=== PATIENT | female | born 1960 | race Two or more races ===

== ENCOUNTER → 2017-12-28 | Emergency (ER) | payer MEDICAID ==
[~2017-12-28] MED LIST: ATEN-60 OR; ENAL20TA93 OR; FURO40TA OR; IBU800T PO; LEVO25TA9 OR; POTASSIUM OR
== END | disposition left against medical advice (07) ==
LOC: ER 21:49
DX: R10.9 Unspecified abdominal pain (principal); Z53.21 Procedure and treatment not carried out due to patient leaving prior to being seen by health care provider

== ENCOUNTER 2018-05-14 00:21 | Inpatient (IN) | payer MEDICAID ==
[~2018-05-14] VITALS: Ht 153.7 cm; Wt 72.6 kg
[~2018-05-14 00:21] MED LIST changes: +HYDR-4683 PO; +ONDA-101 PO; -POTASSIUM OR
[2018-05-14 01:29] LABS: Eosinophils # (auto) 0 uL; Hemoglobin 8.4 g/dL (12.2-16.2); Monocytes # (auto) 0.6 uL; Monocytes % (auto) 3.9 % (0.0-12.0)
[2018-05-14 01:31] LABS: Basophils # (auto) 0 uL; Basophils % (auto) 0.3 % (0.0-2.0); Hematocrit 26.4 % (36.0-46.0); Lymphocytes # (auto) 1.1 uL; Lymphocytes % (auto) 6.8 % (10.0-50.0); Mean Corpuscular Hemoglobin 26.9 pg (28.0-32.0); Mean Corpuscular Hgb Conc. 31.7 g/dL (32.0-36.0); Neutrophils # (auto) 13.9 uL; Platelet Count (auto) 363 10^3/uL (140-450); Red Blood Cells 3.11 10^6/uL (4.0-5.20); White Blood Cell 15.6 10^3/uL (4.4-10.8)
[2018-05-14 01:33] LABS: Red Cell Distribution Width 20.8 % (11.8-14.3)
[2018-05-14 01:42] LABS: Alanine Aminotransferase 26 U/L (13-56); Albumin 1.6 g/dL (3.4-5.0); Anion Gap 10 (5-15); Aspartate Aminotransferase 16 U/L (15-37); BUN/Creatinine Ratio 29.9; Calcium 8.2 mg/dL (8.5-10.1); Carbon Dioxide 23 mmol/L (21-32); Chloride 98 mmol/L (98-107); GFR African American 19 mL/min; GFR Non-African American 16 mL/min; Glucose 200 mg/dL (74-106); Magnesium 1.8 mg/dL (1.6-2.6); Sodium 131 mmol/L (136-145)
[2018-05-14 01:45] LABS: Blood Urea Nitrogen 98 mg/dL (7-18); Potassium 5.9 mmol/L (3.5-5.1)
[2018-05-14 01:47] LABS: Alkaline Phosphatase 247 U/L (45-117); Bilirubin, Total 0.6 mg/dL (0.2-1.0); Total Protein 6.7 g/dL (6.4-8.2)
[2018-05-14] MEDS ORDERED: CALCIUM GLUC 4.65meq/50ml D5AE 50 ML IV ONE (02:00)
[2018-05-14] MEDS ORDERED: InsuLIN REG 1unit/0.01ml Soln (100units/ml) IV ONE (02:00)
[2018-05-14] MEDS ORDERED: SODIUM BICARBONATE 8.4% INJ 50ML SYRINGE IV ONE (02:00)
[2018-05-14] MEDS ORDERED: SODIUM POLYSTYRENE SULF 15GM/60ml SUSP or POWDER PO ONE ×2 (02:00→11:15)
[2018-05-14] MEDS ORDERED: DEXTROSE (50%) 50ML SYRG IV ONE (02:00)
[2018-05-14] MEDS ORDERED: MORPHINE SULFATE 4 MG/ML SYR/VIAL ONE (03:11)
[2018-05-14] MEDS ORDERED: ONDANSETRON HCL 4 MG/2 ML VIAL ONE (03:11)
[2018-05-14 03:54] LABS: Urine Bacteria FEW /hpf (None Seen); Urine Blood Negative /uL (Negative); Urine Hyaline Cast FEW /lpf (0 - 2); Urine Mucus FEW (None Seen); Urine WBC 4 /hpf (0 - 5)
[2018-05-14] MEDS ORDERED: cefTRIAXone 1GM/50ML D5W 50 ML IV ONE (05:00)
[2018-05-14] MEDS ORDERED: DEXTROSE (50%) 50ML SYRG IV PRN (05:15)
[2018-05-14] MEDS ORDERED: NITROGLYCERIN 0.4 MG SL TAB SL PRN (05:15)
[2018-05-14] MEDS ORDERED: TEMAZEPAM 15 MG CAP PO PRN (05:15)
[2018-05-14] MEDS ORDERED: HYDROcodone-ACET 5/325MG TAB PO PRN (05:15)
[2018-05-14] MEDS ORDERED: ONDANSETRON HCL 4 MG/2 ML VIAL IV PRN (05:15)
[2018-05-14] MEDS ORDERED: MORPHINE SULF INJ 2 MG/ML SYRINGE 1ML IV PRN (05:15)
[2018-05-14] MEDS ORDERED: ACETAMINOPHEN 325 MG TAB PO PRN (05:15)
[2018-05-14] MEDS ORDERED: FUROSEMIDE 20 MG TAB PO SCH (06:00)
[2018-05-14] MEDS: InsuLIN REG 1unit/0.01ml Soln (100units/ml) SC SCH ×3 (06:52→19:19)
[2018-05-14] MEDS: ACCU-CHEK COMFORT CURVE STRIP VI SCH ×3 (06:52→19:19)
[2018-05-14] MEDS ORDERED: ONDANSETRON HCL 4 MG/2 ML VIAL IV ONE (07:00)
[2018-05-14] MEDS ORDERED: LEVOTHYROXINE SODIUM 25 MCG TAB PO SCH (07:00)
[2018-05-14] MEDS ORDERED: MORPHINE SULFATE 4 MG/ML SYR/VIAL IV ONE (07:00)
[2018-05-14 08:46] LABS: Protein, Urine 34.4 mg/dL (0.0-11.9)
[2018-05-14] MEDS ORDERED: ENALAPRIL MALEATE 10 MG TAB PO SCH (10:00)
[2018-05-14] MEDS ORDERED: ATENOLOL 50 MG TAB PO SCH (10:00)
[2018-05-14] MEDS ORDERED: PANTOPRAZOLE 40 MG TAB PO SCH (10:00)
[2018-05-14] MEDS ORDERED: HYDROmorphone HCL 2 MG TAB PO PRN (11:15)
[2018-05-14] MEDS ORDERED: ATENOLOL 25 MG TAB PO ONE (11:15)
[2018-05-14 16:57] LABS: Basophils % (auto) 0.7 % (0.0-2.0); Eosinophils % (auto) 1.8 % (0.0-7.0); Lymphocytes % (auto) 8.4 % (10.0-50.0); Monocytes % (auto) 4.9 % (0.0-12.0); Neutrophils % (auto) 84.2 % (37.0-80.0); White Blood Cell 12.7 10^3/uL (4.4-10.8)
[2018-05-14 16:58] LABS: BUN/Creatinine Ratio 31.7; Basophils # (auto) 0.1 uL; Calcium 8.1 mg/dL (8.5-10.1); Eosinophils # (auto) 0.2 uL; Lymphocytes # (auto) 1.1 uL; Monocytes # (auto) 0.6 uL; Neutrophils # (auto) 10.7 uL; Potassium 5.3 mmol/L (3.5-5.1); Red Blood Cells 3.23 10^6/uL (4.0-5.20)
[2018-05-14 16:59] LABS: Hematocrit 27.3 % (36.0-46.0); Hemoglobin 8.6 g/dL (12.2-16.2); Mean Corpuscular Hemoglobin 26.6 pg (28.0-32.0); Mean Corpuscular Hgb Conc. 31.5 g/dL (32.0-36.0); Mean Corpuscular Volume 84.3 fL (80.0-100.0); Platelet Count (auto) 352 10^3/uL (140-450); Red Cell Distribution Width 20.6 % (11.8-14.3)
[2018-05-14 18:09] VITALS: BP 131/73
[2018-05-14 19:52] VITALS: BP 116/70
== END 2018-05-14 20:37 | disposition home or self-care (01) | DRG 530 ==
LOC: EDBD 00:21 → ER 00:36 → TELE 05:14
PROVIDERS: ADMIT Nurse Practitioner; ATTEND Hospitalist
DX: C55 Malignant neoplasm of uterus, part unspecified (principal); E43 Unspecified severe protein-calorie malnutrition; R18.8 Other ascites; C78.6 Secondary malignant neoplasm of retroperitoneum and peritoneum; C78.7 Secondary malignant neoplasm of liver and intrahepatic bile duct; N17.9 Acute kidney failure, unspecified; N18.4 Chronic kidney disease, stage 4 (severe); E11.22 Type 2 diabetes mellitus with diabetic chronic kidney disease; E87.5 Hyperkalemia; I13.0 Hypertensive heart and chronic kidney disease with heart failure and stage 1 through stage 4 chronic kidney disease, or unspecified chronic kidney disease; R59.0 Localized enlarged lymph nodes; K80.20 Calculus of gallbladder without cholecystitis without obstruction; C79.89 Secondary malignant neoplasm of other specified sites; I50.9 Heart failure, unspecified; J44.9 Chronic obstructive pulmonary disease, unspecified; Z82.49 Family history of ischemic heart disease and other diseases of the circulatory system; Z68.30 Body mass index [BMI] 30.0-30.9, adult
CPT/HCPCS: 36415; 71045; 74176; 76775; 80048; 80053; 81001; 82570; 82962; 83735; 83880; 84132; 84156; 84300; 84484; 85025; 87040; 96365; 96375; G0378; J0610; J0696; J1815; J2405